=== PATIENT | female | born 1995 ===

== ENCOUNTER 2024-08-08 17:15 | Outpatient (REF) | payer OTHER, SELFPAY ==
[2024-08-10 15:56] LABS: Bacterial Vaginosis (BV) Negative (Negative); Candida glabrata Negative (Negative); Candida species group Negative (Negative); Chlamydia Result Negative (Negative); GC Result Negative (Negative); Trichomonas vaginalis Negative (Negative)
== END 2024-08-08 17:16 | disposition home or self-care (01) ==
LOC: NCHCN 17:15
PROVIDERS: PCP Family Medicine; Visit Provider Family Medicine
DX: R30.0 Dysuria (principal)
CPT/HCPCS: 81513; 87481; 87491; 87591; 87661